=== PATIENT | female | born 2000 | race Caucasian/White ===

== ENCOUNTER 2022-09-26 07:29 | Emergency (ER) | payer OTHER ==
[2022-09-26] MEDS ORDERED: Dexamethasone 10 MG/ML VIAL ONE (08:03)
== END 2022-09-26 08:40 | disposition home or self-care (01) ==
LOC: CSHERS 07:29
DX: J02.9 Acute pharyngitis, unspecified (principal)
CPT/HCPCS: 87081; 87430; 99283; J1100